=== PATIENT | male | born 1960 | race Caucasian/White ===

== ENCOUNTER 2024-08-19 12:06 | Emergency (ER) | payer MEDICARE, SELFPAY ==
[2024-08-19 12:11] VITALS: BP 145/92; PULSE 89; RESP 16; TEMP 36.4; O2SAT 96; BMI 24.3
--- NOTE | 2024-08-19 12:40 | W.ED.WEAKNES ---
HPI - Weakness General: Chief complaint: Weakness Stated complaint: dehydrated Time Seen by Provider: 08/19/24 12:32 Source: patient Mode of arrival: ambulatory Limitations: no limitations History of Present Illness: 64-year-old male who states he just recently got over the flu states he had 4 days of vomiting stopped 2 days ago but states he is still feeling dehydrated and generally weak. He denies any pain currently denies any fever. Associated symptoms: Reports nausea and vomiting; Denies chest pain, chills, fever(s) or headache(s) Review of Systems Const: Reports: fatigue; Denies: fever(s), chills, body aches or change in appetite ENMT: Denies: throat pain or dental pain Card: Denies: chest pain Resp: Denies: dyspnea GI: Reports: nausea and vomiting; Denies: abdominal pain or diarrhea Musc: Denies: neck pain or back pain Skin/Breast: Denies: rash Neuro: Denies: headache(s) Physical Exam Const: COMMON NORMALS: no acute distress, patient oriented x3 and healthy appearing HENMT: COMMON NORMALS: normocephalic and atraumatic HEAD & SCALP: normocephalic and atraumatic Eye: COMMON NORMALS: Equal, round and reactive pupils present PUPIL: Yes Equal, round and reactive pupils present Neck/C-Spine: COMMON NORMALS: full ROM and supple Chest: COMMONS NORMALS: normal inspection of the chest Resp: COMMON NORMALS: normal respiratory effort, No retractions, No use of accessory muscles and clear to auscultation bilaterally AUSCULTATION: clear to auscultation bilaterally Cardio: COMMON NORMALS: regular rate, regular rhythm and No murmurs present (Cardio) RATE: regular rate RHYTHM: regular rhythm Extremity: COMMON NORMALS: normal to inspection and full ROM Neuro: COMMON NORMALS: patient oriented x3, moves all extremities and no focal motor deficits Psych: COMMON NORMALS: mental status grossly normal, Normal thought process present and cooperative THOUGHT PROCESS: Normal thought process present Skin: COMMON NORMALS: no rashes or lesions noted and no wounds GENERAL SKIN EXAM: no rashes or lesions noted Course Vital Signs: Vital signs: Vital Signs Temperature 97.5 F L 08/19/24 12:11 Pulse Rate 89 08/19/24 12:11 Respiratory Rate 16 08/19/24 12:11 Blood Pressure 145/92 08/19/24 12:11 Pulse Oximetry 96 08/19/24 12:11 Oxygen Delivery Me thod Room Air 08/19/24 12:11 MDM - Weakness Medical Decision Making Patient presents here with weakness along with dehydration he feels much. After fluids lab works normal he stable for discharge. Medical Records I reviewed the patient's medical records. Lab Data I reviewed the patient's lab results. 08/19/24 12:35 08/19/24 12:35 Laboratory Results WBC 6.99 10^3/uL (3.29-11.43) 08/19/24 12:35 RBC 4.45 10^6/uL (3.85-5.65) 08/19/24 12:35 Hgb 13.90 g/dL (11.27-16.99) 08/19/24 12:35 Hct 42.1 % (37-53) 08/19/24 12:35 MCV 94.6 fl (82-101) 08/19/24 12:35 MCH 31.2 pg (27-33) 08/19/24 12:35 MCHC 33.0 g/dL (30-55) 08/19/24 12:35 RDW 12.8 % (12.1-15.1) 08/19/24 12:35 Plt Count 291 10^3/cmm (157-399) 08/19/24 12:35 MPV 8.8 fL (7.4-10.4) 08/19/24 12:35 Neut % (Auto) 66.8 % 08/19/24 12:35 Lymph % (Auto) 19.2 % 08/19/24 12:35 O'Brien % (Auto) 9.3 % 08/19/24 12:35 Eos % (Auto) 3.4 % 08/19/24 12:35 Baso % (Auto) 0.7 % 08/19/24 12:35 Neut # (Auto) 4.67 10^3/uL (1.8-7.7) 08/19/24 12:35 Lymph # (Auto) 1.3 10^3/uL (0.8-4.8) 08/19/24 12:35 O'Brien # (Auto) 0.7 10^3/uL (0.2-0.9) 08/19/24 12:35 Eos # (Auto) 0.2 10^3/uL (0.0-0.8) 08/19/24 12:35 Baso # (Auto) 0.1 10^3/uL (0.0-0.1) 08/19/24 12:35 Nucleated RBC % (auto) 0 % 08/19/24 12:35 Nucleated RBCs # 0.0 /100WBC 08/19/24 12:35 Sodium 138 mmol/L (136-145) 08/19/24 12:35 Potassium 4.5 mmol/L (3.5-5.1) 08/19/24 12:35 Chloride 98 mmol/L (98-107) 08/19/24 12:35 Carbon Dioxide 28 mmol/L (22-29) 08/19/24 12:35 Anion Gap 16.5 (5-19) 08/19/24 12:35 BUN 22 mg/dL (8-23) 08/19/24 12:35 Creatinine 0.8 mg/dL (0.7-1.2) 08/19/24 12:35 GFR Calculation 97.0 mL/min (90-130) 08/19/24 12:35 Glucose 179 mg/dL (65-115) H 08/19/24 12:35 Calculated Osmolality 294 mOsm/kg (285-295) 08/19/24 12:35 Calcium 9.9 mg/dL (8.5-10.5) 08/19/24 12:35 Total Bilirubin 0.2 mg/dL (0.15-1.2) 08/19/24 12:35 AST 16 U/L (0-40) 08/19/24 12:35 ALT 21 U/L (0-41) 08/19/24 12:35 Alkaline Phosphatase 73 U/L (40-130) 08/19/24 12:35 Total Protein 7.7 g/dL (6.6-8.7) 08/19/24 12:35 Albumin 3.9 g/dL (3.5-5.2) 08/19/24 12:35 Globulin 3.8 g/dL (1.3-4.6) 08/19/24 12:35 Lipase 120 U/L (13-60) H 08/19/24 12:35 No radiology studies performed this visit Discharge Plan Discharge Patient Disposition: Home Clinical Impression: Vomiting, Dehydration Condition: Stable Prescriptions: No Action No Known Home Medications Discharge Orders: Discharge ED (Routine); Ordered 08/19/24 Ordered By: Mickey Fuentes Discharge Diet: Advance as tolerated Discharge Activity: Resume usual activity Patient Instructions: Dehydration (ED), Acute Nausea and Vomiting (ED) Print Language: Slovak Coding Level of Care Code ED Precipitation Equipment Tender for Chg Fwd Related Data Home Medications ?Medication ?Instructions ?Recorded ?Confirmed No Known Home Medications 08/19/24 08/19/24 Allergies Allergy/AdvReac Type Severity Reaction Status Date / Time No Known Allergies Allergy Verified 08/19/24 12:13
[2024-08-19 12:41] LABS: Basophils # 0.1 10^3/uL (0.0-0.1); Basophils % 0.7 %; Eosinophils # 0.2 10^3/uL (0.0-0.8); Eosinophils % 3.4 %; Hematocrit 42.1 % (37-53); Lymphocytes # 1.3 10^3/uL (0.8-4.8); Lymphocytes % 19.2 %; Mean Corpuscular Hemoglobin 31.2 pg (27-33); Mean Corpuscular Volume 94.6 fl (82-101); Mean Platelet Volume 8.8 fL (7.4-10.4); Monocytes # 0.7 10^3/uL (0.2-0.9); Monocytes % 9.3 %; Neutrophils # 4.67 10^3/uL (1.8-7.7); Neutrophils % 66.8 %; Nucleated Red Blood Cells % 0 %; Platelet Count 291 10^3/cmm (157-399); Red Blood Count 4.45 10^6/uL (3.85-5.65); Red Cell Distribution Width 12.8 % (12.1-15.1); White Blood Count 6.99 10^3/uL (3.29-11.43)
[2024-08-19] MEDS: sodium chloride 0.9% 1,000 ML 999 ML IV (12:57)
[2024-08-19 13:03] LABS: Alanine Aminotransferase 21 U/L (0-41); Albumin Level 3.9 g/dL (3.5-5.2); Alkaline Phosphatase 73 U/L (40-130); Anion Gap 16.5 (5-19); Aspartate Amino Transferase 16 U/L (0-40); Blood Urea Nitrogen 22 mg/dL (8-23); Calcium 9.9 mg/dL (8.5-10.5); Carbon Dioxide 28 mmol/L (22-29); Chloride 98 mmol/L (98-107); Globulin 3.8 g/dL (1.3-4.6); Glucose 179 mg/dL (65-115); Lipase 120 U/L (13-60); Osmolality Calculated 294 mOsm/kg (285-295); Potassium 4.5 mmol/L (3.5-5.1); Sodium 138 mmol/L (136-145); Total Bilirubin 0.2 mg/dL (0.15-1.2); Total Protein 7.7 g/dL (6.6-8.7)
[2024-08-19 13:32] VITALS: BP 154/82; PULSE 77; O2SAT 99
== END 2024-08-19 13:32 | disposition home or self-care (01) ==
PROVIDERS: Emergency Provider Emergency Medicine
DX: R11.10 Vomiting, unspecified (principal); E86.0 Dehydration
CPT/HCPCS: 80053; 83690; 85025; 99284; J7030